=== PATIENT | male | born 1965 ===

== ENCOUNTER 2018-03-06 04:32 | Emergency (ER) | payer OTHER ==
[2018-03-06 04:37] VITALS: BP 132/78
[2018-03-06] MEDS ORDERED: DIPHTHERIA-TETANUS ADULT 0.5ML IM-VACC ONE (05:00)
== END 2018-03-06 05:18 | disposition home or self-care (01) ==
LOC: ED 04:52
DX: S80.872A Other superficial bite, left lower leg, initial encounter (principal); W50.3XXA Accidental bite by another person, initial encounter; Y93.89 Activity, other specified; Y92.410 Unspecified street and highway as the place of occurrence of the external cause; Y99.8 Other external cause status
CPT/HCPCS: 90471; 90714